=== PATIENT | female | born 1980 | race Caucasian/White ===

== ENCOUNTER → 2017-12-14 | Outpatient (CLI) | payer OTHER ==
[~2017-12-14] MED LIST: CALCTAB65 PO; CITA20TA9 PO; LORA-741 PO; MULT-506 PO; OMEG10007 PO
== END | disposition home or self-care (01) ==
LOC: C.PAPS 10:42
PROVIDERS: ATTEND Obstetrics & Gynecology
DX: Z01.419 Encounter for gynecological examination (general) (routine) without abnormal findings (principal)